=== PATIENT | male | born 1950 | race Hispanic/Latino ===

== ENCOUNTER 2019-01-25 07:33 | Outpatient (CLI) | payer MEDICARE ==
--- NOTE | 2019-01-25 07:53 | ULT ---
US Abdominal Aorta: 01/25/2019 12:00 AM CLINICAL HISTORY: Abdominal bruit.; AAA screening STUDY: Limited abdominal ultrasound of the aorta. TECHNIQUE: A limited ultrasound of the abdominal aorta was performed. Spectral analysis of the Dopple r waveform was performed. COMPARISON: None. FINDINGS: The aorta is normal in caliber without evidence of aneurysmal dilatation and measures 1.9 cm in great est dimension. The common iliac arteries are normal in caliber. IMPRESSION: No evidence of abdominal aortic aneurysm.
== END 2019-01-25 07:34 | disposition home or self-care (01) ==
LOC: BICULT 07:33
PROVIDERS: ATTEND Family Medicine
DX: Z13.6 Encounter for screening for cardiovascular disorders (principal)
CPT/HCPCS: 76775